=== PATIENT | male | born 1975 | race American Indian/Alaskan Native ===

== ENCOUNTER 2019-12-23 23:36 | Emergency (ER) | payer OTHER ==
[2019-12-24 00:03] VITALS: BP 181/110
[2019-12-24] MEDS ORDERED: HYDROcodone/ACETAMINOPHEN 5-325 MG TAB PO ONE (01:52)
--- NOTE | 2019-12-24 02:06 | Emergency Department Report ---
ED ENT HPI - General Chief complaint: Dental/Oral Stated complaint: TOOTHACE Time Seen by Provider: 12/24/19 01:49 Source: patient Mode of arrival: Ambulatory Limitations: No Limitations - History of Present Illness MD complaint: tooth pain -: Sudden Location: tooth # Severity: mild Quality: aching, dull Consistency: constant Improves with: none Worsens with: none Context- Dental: history of dental caries, poor dental care Associated Symptoms: toothache - Related Data Previous Rx's Medication Instructions Recorded Last Taken Type Ketorolac [Toradol] 10 mg PO Q6H PRN #14 tablet 12/24/19 Unknown Rx Lidocaine Viscous 2% 15 ml MM Q4HR PRN #360 udc 12/24/19 Unknown Rx ED Dental HPI - General Chief complaint: Dental/Oral Stated complaint: TOOTHACE Time Seen by Provider: 12/24/19 01:49 Source: patient Mode of arrival: Ambulatory Limitations: No Limitations - Related Data Previous Rx's Medication Instructions Recorded Last Taken Type Ketorolac [Toradol] 10 mg PO Q6H PRN #14 tablet 12/24/19 Unknown Rx Lidocaine Viscous 2% 15 ml MM Q4HR PRN #360 udc 12/24/19 Unknown Rx ED Review of Systems ROS: Stated complaint: TOOTHACE Other details as noted in HPI Comment: All other systems reviewed and negative ED Past Medical Hx - Past Medical History Previous Medical History?: Yes Hx Hypertension: Yes Hx Diabetes: Yes - Surgical History Past Surgical History?: No - Social History Smoking Status: Never Smoker Substance Use Type: Alcohol - Medications Home Medications: Home Medications Medication Instructions Recorded Confirmed Last Taken Type Ketorolac [Toradol] 10 mg PO Q6H PRN #14 tablet 12/24/19 Unknown Rx Lidocaine Viscous 2% 15 ml MM Q4HR PRN #360 udc 12/24/19 Unknown Rx ED Physical Exam - General Limitations: No Limitations General appearance: alert, in no apparent distress - Head Head exam: Present: atraumatic, normocephalic - Eye Eye exam: Present: normal appearance - ENT ENT exam: Present: mucous membranes moist, other (Several dental caries with significant dental erosion to the right lower molar region in the right upper molar region. There is mild adjacent erythema no abscess is noted tongue midline airway is patent with normal voice no drooling. No lymphadenopathy is appreciated. No swelling to the parotid glands. Normal Kacy's and Stensen's duct) - Neck Neck exam: Present: normal inspection - Respiratory Respiratory exam: Present: normal lung sounds bilaterally. Absent: respiratory distress - Cardiovascular Cardiovascular Exam: Present: regular rate, normal rhythm. Absent: systolic murmur, diastolic murmur, rubs, gallop - GI/Abdominal GI/Abdominal exam: Present: soft, normal bowel sounds - Rectal Rectal exam: Present: deferred - Extremities Exam Extremities exam: Present: normal inspection - Back Exam Back exam: Present: normal inspection - Neurological Exam Neurological exam: Present: alert, oriented X3 - Psychiatric Psychiatric exam: Present: normal affect, normal mood - Skin Skin exam: Present: warm, dry, intact, normal color. Absent: rash ED Course Vital Signs 12/24/19 00:01 Pulse Rate 109 H Respiratory 20 Rate Blood Pressure 181/110 O2 Sat by Pulse 100 Oximetry Critical care attestation.: If time is entered above; I have spent that time in minutes in the direct care of this critically ill patient, excluding procedure time. ED Disposition Clinical Impression: Infected dental caries Disposition: TO HOME OR SELFCARE Is pt being admited?: No Does the pt Need Aspirin: No Condition: Stable Instructions: Toothache (ED), Dental Caries (ED), Acute dental trauma (ED) Prescriptions: Lidocaine Viscous 2% 15 ml MM Q4HR PRN #360 udc PRN Reason: dental pain Ketorolac [Toradol] 10 mg PO Q6H PRN #14 tablet PRN Reason: Pain Referrals: [facility] [Primary Care Provider] - 3-5 Days
== END 2019-12-24 02:11 | disposition home or self-care (01) ==
LOC: ED 23:36
DX: K02.9 Dental caries, unspecified (principal); I10 Essential (primary) hypertension; E11.9 Type 2 diabetes mellitus without complications; Z79.899 Other long term (current) drug therapy
CPT/HCPCS: 99282

== ENCOUNTER 2021-09-29 18:46 | Emergency (ER) | payer OTHER | END 2021-09-29 20:19 | disposition left against medical advice (07) | LOC: ED 18:46 | DX: L02.6 Cutaneous abscess, furuncle and carbuncle of foot (principal); Z53.21 Procedure and treatment not carried out due to patient leaving prior to being seen by health care provider ==